=== PATIENT | female | born 1995 | race Caucasian/White ===

== ENCOUNTER 2021-07-13 05:50 | Day surgery (SDC) | payer BC ==
[~2021-07-13] VITALS: Ht 152.4 cm; Wt 42.6 kg
[2021-07-13] MEDS ORDERED: ACETAMINOPHEN I.V. 1000 MG 100 ML IV ONE (07:32)
[2021-07-13 07:43] LABS: HCG,QUAL RESULT NEGATIVE (NEGATIVE)
[2021-07-13] MEDS ORDERED: LR 1,000 ML IV SCH (08:30)
[2021-07-13] MEDS ORDERED: METOCLOPRAMIDE HCL 10 MG/2 ML VIAL IVP PRN (08:30)
[2021-07-13] MEDS ORDERED: HYDROmorphone 1 MG/ML INJ. CARTRIDGE IVP PRN ×2 (08:30)
[2021-07-13] MEDS ORDERED: MEPERIDINE HCL/PF 25 MG/ML DISP.SYRIN IVP PRN (08:30)
[2021-07-13] MEDS ORDERED: MIDAZOLAM HCL 2 MG/2 ML VIAL (VERSED) IVP PRN (08:30)
[2021-07-13] MEDS ORDERED: fentaNYL CITRATE/PF 100 MCG/2 ML AMP ONE (09:04)
[2021-07-13] MEDS ORDERED: PROPOFOL 200MG/ 20ML VIAL (DIPRIVAN) IV ONE (09:04)
[2021-07-13] MEDS ORDERED: WATER FOR IRRIGATION,STERILE 1,000 ML IRRIG.SOLN IR ONE (09:04)
[2021-07-13] MEDS ORDERED: BUPIVACAINE /EPINEPHRINE/PF 0.25% 30 ML VIAL INJ ONE (09:04)
[2021-07-13] MEDS ORDERED: DEXAMETHASONE SOD PHOSPHATE 4 MG/ML VIAL ONE (09:04)
[2021-07-13] MEDS ORDERED: ROCURONIUM BROMIDE 10 MG/ML (ZEMURON) ONE (09:04)
[2021-07-13] MEDS ORDERED: MIDAZOLAM HCL 5 MG/ML VIAL (VERSED) IV ONE (09:04)
[2021-07-13] MEDS ORDERED: ONDANSETRON HCL 4 MG/2 ML VIAL ONE (09:04)
[2021-07-13] MEDS ORDERED: DESFLURANE 15 MIN GAS INH ONE (09:04)
[2021-07-13] MEDS ORDERED: LR 1,000 ML IV.SOLN IV ONE (09:04)
[2021-07-13] MEDS ORDERED: SUGAMMADEX SODIUM 200 MG/2 ML VIAL IV ONE (09:04)
[2021-07-13] MEDS ORDERED: LIDOCAINE/EPI 2% 1:100000 20 ML VIAL INJ ONE (09:04)
[2021-07-13 10:53] VITALS: BP_SYST 101
== END 2021-07-13 11:40 | disposition home or self-care (01) ==
LOC: SDS 05:50 → SMU 05:50 → SDS 11:40
PROVIDERS: ATTEND Otolaryngology
DX: J35.01 Chronic tonsillitis (principal); J03.90 Acute tonsillitis, unspecified; R13.12 Dysphagia, oropharyngeal phase; R59.1 Generalized enlarged lymph nodes; Z20.822 Contact with and (suspected) exposure to COVID-19; Z79.899 Other long term (current) drug therapy
CPT/HCPCS: 42826; 84703; 88304; C9399; J0131; J1100; J2250; J2405; J2704; J3010; J3465; J3490; J7120; U0003